=== PATIENT | female | born 1970 | race Caucasian/White ===

== ENCOUNTER 2016-07-09 17:00 | Emergency (ER) | payer MEDICAID ==
[2016-07-09] MEDS ORDERED: LORazepam 2 MG/ML INJ IVP ONE (17:27)
[2016-07-09] MEDS ORDERED: ONDANSETRON 4 MG/2 ML VIAL IVP ONE (17:27)
[2016-07-09] MEDS ORDERED: NS 1,000 ML IV ONE (17:27)
--- NOTE | 2016-07-09 17:30 | EDPHY ---
H & P Time Seen by Provider: 07/09/16 17:08 HPI/ROS: CHIEF COMPLAINT: Vomiting, alcohol withdrawal HISTORY OF PRESENT ILLNESS: 46-year-old female presents to the emergency department with acute alcohol withdrawal. The patient states that she was sober for a year and then has been on a "flannery" for the last 4 days drinking at least 2 pt of vodka daily. She last drank this morning. She checked herself into the addiction recovery [facility] and has been vomiting and does not feel well. The patient states that she is tremulous. She has had alcohol withdrawal seizures in the past. She denies abdominal pain. She denies chest pain or difficulty breathing. She does complain of a mild headache. No neck or back pain. REVIEW OF SYSTEMS: Constitutional: No fever, no chills. Eyes: No double or blurry vision. ENT: No sore throat. Respiratory: No cough, no shortness of breath. Cardiac: No chest pain. Gastrointestinal: Vomiting as above. No abdominal pain or diarrhea. Genitourinary: No dysuria. Musculoskeletal: No neck or back pain. Skin: No rashes. Neurological: headache. Past Medical/Surgical History: Alcoholism, alcohol withdrawal seizure Social History: Single and lives in [place] Smoking Status: Light smoker Physical Exam: General Appearance: Alert. Anxious. Eyes: Pupils equal and round. Extraocular motions are all intact. ENT: Mouth: Mucous membranes moist. Respiratory: No wheezing, rhonchi, or rales, lungs are clear to auscultation. Cardiovascular: Regular rate and rhythm. Tachycardic with heart rate of 120s. Gastrointestinal: Abdomen is soft and nontender, no masses, no rebound or guarding, bowel sounds normal. Neurological: Alert and oriented x 3, cranial nerves II through XII grossly intact Skin: Warm and dry, no rashes. Musculoskeletal: Nontender to palpate along the cervical, thoracic or lumbar spine. Neck is supple. Extremities: Full range of motion and no peripheral edema. Psychiatric: Patient is oriented X 3, there is no agitation. Constitutional: Initial Vital Signs Temperature (C) 37.0 C 07/09/16 17:04 Heart Rate 125 H 07/09/16 17:04 Respiratory Rate 18 07/09/16 17:04 Blood Pressure 127/85 H 07/09/16 17:04 O2 Sat (%) 96 07/09/16 17:04 O2 Delivery Mode Room Air Allergies/Adverse Reactions: No Known Allergies Allergy (Unverified 02/04/14 22:47) Home Medications: Medication Instructions Recorded Levothyroxine 07/09/16 Medical Decision Making ED Course/Re-evaluation: 46-year-old female presents to the emergency department with multiple episodes of vomiting alcohol withdrawal. The patient appears very dehydrated. She is tachycardic. An IV was established and she is receiving IV normal saline. Laboratory studies are pending. The patient has been medically cleared, she will be discharged back to the addiction recovery Center with Librium. The patient received 2 L of IV normal saline, Zofran and Ativan. She was feeling much better. She was tolerating p.o. fluids. Heart rate upon discharge was 102. Will be discharged to the addiction recovery Center. Patient's abdomen is benign. I do not think imaging studies are indicated. Differential Diagnosis: Including but not limited to alcohol withdrawal, delirium, dehydration, gastritis, acute appendicitis, bowel obstruction, urinary tract infection, pyelonephritis - Data Points Laboratory Results: Laboratory Results 07/09/16 17:44 07/09/16 17:44 Sodium 138 mEq/L mEq/L (134-144) Potassium 3.6 mEq/L mEq/L (3.5-5.2) Chloride 94 mEq/L L mEq/L (97-110) Carbon Dioxide 23 mEq/l mEq/l (22-31) Anion Gap 21 mEq/L H mEq/L (8-16) BUN 10 mg/dL mg/dL (7-23) Creatinine 0.8 mg/dL mg/dL (0.6-1.0) Estimated GFR > 60 Glucose 131 mg/dL H mg/dL (70-100) Calcium 9.7 mg/dL mg/dL (8.5-10.4) Medications Given: Discontinued Medications Chlordiazepoxide (Librium 25 Mg Prepack#6) 1 btl TAKEHOME EDNOW ONE Stop: 07/09/16 19:10 Last Admin: 07/09/16 19:15 Dose: 1 btl Sodium Chloride (Ns) 1,000 mls @ 0 mls/hr IV ONCE ONE PRN Reason: Wide Open Stop: 07/09/16 17:28 Last Admin: 07/09/16 17:52 Dose: 1,000 mls Lorazepam (Ativan Injection) 1 mg IVP EDNOW ONE Stop: 07/09/16 17:28 Last Admin: 07/09/16 17:51 Dose: 1 mg Ondansetron HCl (Zofran) 4 mg IVP EDNOW ONE Stop: 07/09/16 17:28 Last Admin: 07/09/16 17:52 Dose: 4 mg Departure - Departure Disposition: Home, Routine, Self-Care Clinical Impression: Alcohol withdrawal Qualifiers: Complication of substance-induced condition: uncomplicated Qualified Code(s): F10.230 - Alcohol dependence with withdrawal, uncomplicated Vomiting Qualifiers: Vomiting type: unspecified Vomiting Intractability: non-intractable Nausea presence: with nausea Qualified Code(s): R11.2 - Nausea with vomiting, unspecified Condition: Good Instructions: Chlordiazepoxide/Clidinium (By mouth), Acute Nausea and Vomiting (ED), Alcohol Withdrawal (ED) Additional Instructions: Clear liquids and slowly advance diet as tolerated. Librium will be dispensed by [facility] staff for symptoms of withdrawal. Referrals: [facility] [Outside] - As per Instructions
[2016-07-09 18:06] LABS: ANION GAP 21 mEq/L (8-16); CALCIUM 9.7 mg/dL (8.5-10.4); CARBON DIOXIDE 23 mEq/l (22-31); CHLORIDE 94 mEq/L (97-110); CREATININE 0.8 mg/dL (0.6-1.0); GLOMERULAR FILTRATION RATE > 60; GLUCOSE 131 mg/dL (70-100); POTASSIUM 3.6 mEq/L (3.5-5.2); SODIUM 138 mEq/L (134-144)
[2016-07-09 18:29] VITALS: TEMP 98.2
[2016-07-09] MEDS ORDERED: CHLORDIAZEPOXIDE 25MG PREPK#6 BTL TAKEHOME ONE (19:09)
[2016-07-09 19:23] VITALS: BP 123/81; PULSE 99; RESP 16; O2SAT 96
== END 2016-07-09 19:21 | disposition home or self-care (01) ==
DX: F10.230 Alcohol dependence with withdrawal, uncomplicated (principal); F17.200 Nicotine dependence, unspecified, uncomplicated
CPT/HCPCS: 96374; J2060; J2405

== ENCOUNTER 2016-08-04 17:14 | Emergency (ER) | payer MEDICAID ==
[2016-08-04 18:02] VITALS: RESP 16; O2SAT 96
--- NOTE | 2016-08-04 18:47 | EDPHY ---
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 She is not know exactly how she landed. She did have a sudden onset of pain in the right elbow. She continued to get on the bus and went home and now returns here is the pain is persisted. No numbness or tingling. No weakness. No wrist drop. No pain in the ipsilateral brachium, shoulder, forearm, wrist or hand. No head or neck injury. No loss of conscious. No chest or back pain. No abdominal pain. No injuries to the legs of the left arm. She is right-hand dominant. No other associated complaints or modifying factors. PRIOR ORTHO INJURIES: Left lower extremity surgery remotely ESTABLISHED ORTHOPEDIST: None REVIEW OF SYSTEMS: Ten systems reviewed and are negative unless otherwise noted in the HPI EXAMINATION General Appearance: Alert, no distress, tearful but consolable Cardiovascular: Pulses normal throughout. Symmetric radial pulses 2+. Brisk cap refill Neurological: A&O, sensory symmetric, strength symmetric. No wrist drop. Excellent strength in the interossei symmetrically. Skin: Warm and dry, no rash. No lacerations abrasions or contusions. Extremities: Tenderness to palpation of the right elbow. Difficulty ranging the elbow due to pain. There is no point tenderness of the radial head. Range of motion of the right shoulder and right wrist are fully intact and symmetric. Neurovascular intact distal to the area of pain Psychiatric: Mood and affect normal DIFFERENTIAL DIAGNOSES: Including but not limited to fracture, dislocation, fracture dislocation, sprain , strain, contusion, hematoma MDM: 6:45 p.m. Mechanical fall with right elbow injury. There is mild swelling. No deformity. She is neurovascular intact distal to the injury. X-ray is pending at this time. 7:00 p.m. X-ray has been read as a radial head fracture, nondisplaced with effusion. I have re-evaluated her. She will be treated with posterior splint, sling. We discussed removing the sling for range of motion of the shoulder. We discussed return to the emergency department precautions. She is to follow up with Orthopedics for definitive care. She is comfortable this plan and discharged home neurovascular intact, in stable condition ED Precautions: Worsening pain. Erythema, edema, cyanosis, pallor, paresthesia or anesthesia. SUPERVISION: This patient was independently evaluated without direct examination by the attending physician. Case was discussed with attending physician. Source: Patient Exam Limitations: No limitations - Personal History LMP (Females 10-55): 8-14 Days Ago Current Tetanus/Diphtheria Vaccine: Unsure Current Tetanus Diphtheria and Acellular Pertussis (TDAP): Unsure Tetanus Vaccine Date: 2013 - Medical/Surgical History Hx Asthma: No Hx Chronic Respiratory Disease: No Hx Diabetes: No Hx Cardiac Disease: No Hx Renal Disease: No Hx Cirrhosis: No Hx Alcoholism: Yes Hx HIV/AIDS: No Hx Splenectomy or Spleen Trauma: No Other PMH: hypothyroidism, bipolar, alcoholism, - Social History Smoking Status: Light smoker Constitutional: Initial Vital Signs Temperature (C) 98.4 F 08/04/16 18:00 Heart Rate 76 08/04/16 18:00 Respiratory Rate 16 08/04/16 18:00 Blood Pressure 155/95 H 08/04/16 18:00 O2 Sat (%) 96 08/04/16 18:00 O2 Delivery Mode Room Air Allergies/Adverse Reactions: No Known Allergies Allergy (Unverified 02/04/14 22:47) Home Medications: Medication Instructions Recorded Levothyroxine 07/09/16 oxyCODONE HCL/ACETAMINOPHEN 1 each PO Q4-6PRN PRN #14 tablet 08/04/16 [Percocet 5-325 mg Tablet] Departure - Departure Disposition: Home, Routine, Self-Care Clinical Impression: Contusion of elbow, right Qualifiers: Encounter type: initial encounter Qualified Code(s): S50.01XA - Contusion of right elbow, initial encounter Right radial head fracture Qualifiers: Encounter type: initial encounter Fracture type: closed Fracture alignment: nondisplaced Qualified Code(s): S52.124A - Nondisplaced fracture of head of right radius, initial encounter for closed fracture Condition: Good Instructions: Elbow Sprain (ED), Arthralgia (ED), Elbow Fracture (ED) Additional Instructions: 1. Keep splint in place at all times until seen by Orthopedics 2. Ice and elevate the extremity often 3. Removed the sling 2-3 times daily to range the shoulder 4. Return to the ER for worsening pain, numbness, tingling, weakness changes in appearance of the arm or hand Referrals: NONE *PRIMARY CARE P,. [Primary Care Provider] - As per Instructions Kory Hernandez MD [Medical Doctor] - As per Instructions Prescriptions: oxyCODONE HCL/ACETAMINOPHEN [Percocet 5-325 mg Tablet] 1 each PO Q4-6PRN PRN # 14 tablet PRN Reason: Pain, Breakthrough
[2016-08-04] MEDS ORDERED: OXYCODONE/APAP 5/325MG PREPACK#4 BTL TAKEHOME ONE (18:56)
[2016-08-04] MEDS ORDERED: OXYCODONE/APAP 5/325 TAB PO ONE (18:56)
[2016-08-04 19:25] VITALS: BP 153/92; PULSE 77; TEMP 98.2
== END 2016-08-04 19:23 | disposition home or self-care (01) ==
DX: S52.124A Nondisplaced fracture of head of right radius, initial encounter for closed fracture (principal); S50.01XA Contusion of right elbow, initial encounter; F17.200 Nicotine dependence, unspecified, uncomplicated; W01.0XXA Fall on same level from slipping, tripping and stumbling without subsequent striking against object, initial encounter; Y99.8 Other external cause status; Y93.01 Activity, walking, marching and hiking

== ENCOUNTER 2017-04-26 13:11 | Emergency (ER) | payer MEDICAID ==
--- NOTE | 2017-04-26 13:53 | EDPHY ---
H & P Time Seen by Provider: 04/26/17 13:33 HPI/ROS: CHIEF COMPLAINT: Flu-like symptoms HISTORY OF PRESENT ILLNESS: This patient is a 47 y/o female arriving via EMS for evaluation of flu-like symptoms. Two weeks ago, she developed congestion, headache, and vomiting. Several coworkers had similar symptoms. Recently, she has had a productive cough , and feels "out of it". She is concerned she may be dehydrated since she has a very sore throat and feels she has not been able to eat or drink much. She does say she has had about half a gallon of water today. She had noted dark-colored urine. She endorses subjective fever. Today, she felt her cough was worsening and felt too weak to walk to the bus stop, so called EMS. She does generally smoke but has not for several days due to her cough. No chest pain, abdominal pain, diarrhea, neck pain, or other associated symptoms. REVIEW OF SYSTEMS: A 10 point review of systems was performed and is negative with the exception of the elements mentioned in the history of present illness. Past Medical/Surgical History: Hypothyroidism Bipolar Alcoholism Social History: Light tobacco use. Lives in an apartment in [place]. Employed. Moderate alcohol use. Smoking Status: Light smoker Physical Exam: General Appearance: Alert, pleasant, nontoxic Eyes: Pupils equal and round, no conjunctival pallor or injection ENT, Mouth: Pharyngeal erythema. Mucous membranes moist Neck: Normal inspection Respiratory: Lungs are clear to auscultation Cardiovascular: Regular tachycardia Gastrointestinal: Abdomen is soft and non-tender Neurological: A&O, nonfocal exam Skin: Warm and dry, no rash Extremities: Nontender, no pedal edema Psychiatric: Mood and affect normal Constitutional: Initial Vital Signs Temperature (C) 36.8 C 04/26/17 13:11 Heart Rate 98 04/26/17 13:11 Respiratory Rate 16 04/26/17 13:11 Blood Pressure 118/92 H 04/26/17 13:11 O2 Sat (%) 93 04/26/17 13:11 O2 Delivery Mode Room Air Allergies/Adverse Reactions: No Known Allergies Allergy (Unverified 02/04/14 22:47) Home Medications: Medication Instructions Recorded Levothyroxine 07/09/16 Albuterol [Proventil Inhaler HFA 2 puffs IH QID PRN #1 mdi 04/26/17 (*)] Azithromycin [Zithromax] 250 mg PO DAILY #6 tab 04/26/17 traZODone 04/26/17 Medical Decision Making - Diagnostics Imaging Results: Imaging Impressions Chest X-Ray 04/26/17 14:00 Impression: No evidence of acute cardiopulmonary abnormality. Imaging: I viewed and interpreted images myself ED Course/Re-evaluation: 47 y/o female presents with one week history of cough, headache, and malaise. Lungs are clear to auscultation, but patient has productive cough and complains of chest congestion. Plan for chest x-ray, labs including CBC and chemistries. Plan to administer DuoNeb and IVF for symptom relief. Reviewed chest x-ray. Negative for pneumonia. Results d/w patient. She is feeling better following DuoNeb administration. Lungs remain clear to auscultation. Administered 8mg PO Decadron for sore throat. Plan to d/c home in good condition with prescription for Zithromax and albuterol inhaler. F/u and return precautions discussed. She is comfortable with this plan. Differential Diagnosis: Differential diagnosis includes but is not limited to pneumonia, otitis media, peritonsillar abscess, retropharyngeal abscess, meningitis. - Data Points Laboratory Results: Laboratory Results 04/26/17 13:12 04/26/17 13:12 04/26/17 04/26/17 13:12 13:12 WBC 8.26 10^3/uL 10^3/uL (3.80-9.50) RBC 5.15 10^6/uL 10^6/uL (4.18-5.33) Hgb 15.6 g/dL g/dL (12.6-16.3) Hct 46.0 % % (38.0-47.0) MCV 89.3 fL fL (81.5-99.8) MCH 30.3 pg pg (27.9-34.1) MCHC 33.9 g/dL g/dL (32.4-36.7) RDW 20.1 % H % (11.5-15.2) Plt Count 155 10^3/uL 10^3/uL (150-400) MPV 10.8 fL fL (8.7-11.7) Neut % (Auto) 75.4 % H % (39.3-74.2) Lymph % (Auto) 16.8 % % (15.0-45.0) [place] % (Auto) 5.9 % % (4.5-13.0) Eos % (Auto) 0.4 % L % (0.6-7.6) Baso % (Auto) 1.0 % % (0.3-1.7) Nucleat RBC Rel Count 0.2 % % (0.0-0.2) Absolute Neuts (auto) 6.23 10^3/uL 10^3/uL (1.70-6.50) Absolute Lymphs (auto) 1.39 10^3/uL 10^3/uL (1.00-3.00) Absolute Monos (auto) 0.49 10^3/uL 10^3/uL (0.30-0.80) Absolute Eos (auto) 0.03 10^3/uL 10^3/uL (0.03-0.40) Absolute Basos (auto) 0.08 10^3/uL 10^3/uL (0.02-0.10) Absolute Nucleated RBC 0.02 10^3/uL H 10^3/uL (0-0.01) Immature Gran % 0.5 % % (0.0-1.1) Immature Gran # 0.04 10^3/uL 10^3/uL (0.00-0.10) Sodium 145 mEq/L mEq/L (135-145) Potassium 3.9 mEq/L mEq/L (3.5-5.2) Chloride 97 mEq/L mEq/L (97-110) Carbon Dioxide 21 mEq/l L mEq/l (22-31) Anion Gap 27 mEq/L H mEq/L (8-16) BUN 10 mg/dL mg/dL (7-23) Creatinine 1.0 mg/dL mg/dL (0.6-1.0) Estimated GFR 59 Glucose 85 mg/dL mg/dL (70-100) Calcium 9.3 mg/dL mg/dL (8.5-10.4) Medications Given: Discontinued Medications Albuterol/Ipratropium (Duoneb) 3 ml IH EDNOW ONE Stop: 04/26/17 14:00 Last Admin: 04/26/17 14:28 Dose: 3 ml Dexamethasone (Decadron) 8 mg PO EDNOW ONE Stop: 04/26/17 14:52 Last Admin: 04/26/17 15:26 Dose: 8 mg Sodium Chloride (Ns) 1,000 mls @ 0 mls/hr IV ONCE ONE; Wide Open PRN Reason: Protocol Stop: 04/26/17 14:00 Last Admin: 04/26/17 14:28 Dose: 1,000 mls Departure - Departure Disposition: Home, Routine, Self-Care Clinical Impression: Acute bronchitis Qualifiers: Bronchitis organism: other organism Qualified Code(s): J20.8 - Acute bronchitis due to other specified organisms Condition: Good Instructions: Albuterol (By breathing), Azithromycin (By mouth), Acute Bronchitis (ED) Additional Instructions: 1. Follow up with the [facility] for further evaluation. 2. Take Zithromax as prescribed. 3. Stay well hydrated, drinking plenty of fluids. 4. Return to the Emergency Department for high fever, difficulty tolerating or swallowing liquids, neck pain or stiffness, shortness of breath or other concerns. 5. Use your Albuterol inhaler as prescribed as needed for difficulty breathing. Referrals: [facility],. [Clinic] - As per Instructions Prescriptions: Albuterol [Proventil Inhaler HFA (*)] 2 puffs IH QID PRN #1 mdi PRN Reason: Short Of Breath/Dyspnea Azithromycin [Zithromax] 250 mg PO DAILY #6 tab Report Scribed for: Lucila Cortes Report Scribed by: Araceli Larson Date of Report: 04/26/17 Time of Report: 13:57 Physician Review and Approval Statement: 04/26/17 14:54 Portions of this note were transcribed by a medical administrator. I personally performed a history, physical exam, medical decision making, and confirmed accuracy of information the transcribed note.
[2017-04-26] MEDS ORDERED: IPRATROPIUM/ALBUTEROL 3 ML DEYVIAL IH ONE (13:59)
[2017-04-26] MEDS ORDERED: NS 1,000 ML IV ONE (13:59)
[2017-04-26 14:10] LABS: PLATELET COUNT 155 10^3/uL (150-400)
[2017-04-26 14:15] VITALS: TEMP 98.2
[2017-04-26 14:30] VITALS: PULSE 100
[2017-04-26] MEDS ORDERED: DEXAMETHASONE 4 MG TAB PO ONE (14:51)
[2017-04-26 15:33] VITALS: BP 118/90; RESP 16; O2SAT 94
== END 2017-04-26 15:31 | disposition home or self-care (01) ==
LOC: EDUNIT# → EDBD
DX: J20.8 Acute bronchitis due to other specified organisms (principal); E86.9 Volume depletion, unspecified; F17.200 Nicotine dependence, unspecified, uncomplicated

== ENCOUNTER 2017-06-16 20:55 | Emergency (ER) | payer MEDICAID ==
[2017-06-16 21:00] VITALS: BP 108/81
[2017-06-16] MEDS ORDERED: ONDANSETRON DISINTEGRATING 4 MG TAB ONE (21:12)
[2017-06-16] MEDS ORDERED: ONDANSETRON DISINTEGRATING 4 MG TAB PO ONE (21:14)
[2017-06-16] MEDS ORDERED: CHLORDIAZEPOXIDE 25MG PREPK#6 BTL TAKEHOME ONE (21:21)
--- NOTE | 2017-06-16 21:23 | EDPHY ---
H & P Time Seen by Provider: 06/16/17 21:21 HPI/ROS: CHIEF COMPLAINT: Alcohol withdrawal, needs Librium HISTORY OF PRESENT ILLNESS: 47-year-old female with alcoholism presents with request for Librium. [facility]. She started vomiting this afternoon, but now feels better after Zofran ODT. She is requesting Librium and then to go back to the [facility]. REVIEW OF SYSTEMS: Constitutional: No fever, no chills Eyes: No visual changes ENT: No sore throat Respiratory: No cough, no shortness of breath Cardiac: No chest pain Gastrointestinal: no abdominal pain Genitourinary: No hematuria, no dysuria Musculoskeletal: No leg pain or swelling Skin: No rash Neurological: No headache Psychiatric: No depression Past Medical/Surgical History: Alcoholism Smoking Status: Light smoker Physical Exam: General Appearance: Alert, pleasant, not tremulous Eyes: Pupils equal and round, no conjunctival pallor or injection ENT, Mouth: Mucous membranes moist Neck: Normal inspection Respiratory: Lungs are clear to auscultation Cardiovascular: Regular tachycardia, heart rate 105 Gastrointestinal: Abdomen is soft and nontender Neurological: A&O, nonfocal, normal gait Skin: Warm and dry, no rash Extremities: Nontender, no pedal edema Psychiatric: Mood and affect normal Constitutional: Initial Vital Signs Temperature (C) 37 C 06/16/17 20:58 Heart Rate 126 H 06/16/17 20:58 Respiratory Rate 18 06/16/17 20:58 Blood Pressure 108/81 H 06/16/17 20:58 O2 Sat (%) 93 06/16/17 20:58 O2 Delivery Mode Room Air Allergies/Adverse Reactions: No Known Allergies Allergy (Verified 06/16/17 21:00) Home Medications: Medication Instructions Recorded Levothyroxine 07/09/16 Medical Decision Making ED Course/Re-evaluation: This pt presents in alcohol withdrawal. Initial HR 126, HR 100's on my exam. Feels much better after Zofran. Tolerated Librium po. IVF/meds discussed, prefers oral option. Wants to go back to the [facility]. - Data Points Medications Given: Discontinued Medications Chlordiazepoxide (Librium 25 Mg Prepack#6) 1 btl TAKEHOME EDNOW ONE Stop: 06/16/17 21:22 Last Admin: 06/16/17 21:34 Dose: 1 btl Chlordiazepoxide HCl (Librium) 25 mg PO EDNOW ONE Stop: 06/16/17 21:34 Last Admin: 06/16/17 21:34 Dose: 25 mg Ondansetron HCl (Zofran Odt) 4 mg PO EDNOW ONE Stop: 06/16/17 21:15 Last Admin: 06/16/17 21:14 Dose: 4 mg Ondansetron HCl (Zofran Odt 4 Mg Prepack#2) 1 btl TAKEHOME EDNOW ONE Stop: 06/16/17 21:28 Last Admin: 06/16/17 21:34 Dose: 1 btl Departure - Departure Disposition: Home, Routine, Self-Care Clinical Impression: Alcohol withdrawal Qualifiers: Complication of substance-induced condition: uncomplicated Qualified Code(s): F10.230 - Alcohol dependence with withdrawal, uncomplicated Condition: Good Instructions: Chlordiazepoxide/Clidinium (By mouth), Ondansetron (By mouth), Alcohol Withdrawal (ED) Additional Instructions: Take Librium 1-2 tablet every 6 hr as needed for alcohol withdrawal. Zofran 1 tablet under the tongue every 6 hr as needed for nausea. Referrals: [facility] [Outside] - As per Instructions
[2017-06-16] MEDS ORDERED: ONDANSETRON 4MG PREPACK#2 BTL TAKEHOME ONE (21:27)
[2017-06-16] MEDS ORDERED: chlordiazePOXIDE 25 MG CAP ONE (21:31)
[2017-06-16] MEDS ORDERED: chlordiazePOXIDE 25 MG CAP PO ONE (21:33)
== END 2017-06-16 22:06 | disposition home or self-care (01) ==
DX: F10.230 Alcohol dependence with withdrawal, uncomplicated (principal); F17.200 Nicotine dependence, unspecified, uncomplicated

== ENCOUNTER 2017-12-12 17:24 | Emergency (ER) | payer MEDICAID ==
--- NOTE | 2017-12-12 17:31 | EDPHY ---
H & P Time Seen by Provider: 12/12/17 17:28 HPI/ROS: HPI: This is a 47-year-old female who presents with Chief Complaint: "Not feeling well", generalized malaise Location: Body Quality:"Not feeling well" Duration: 2-3 months Signs and Symptoms: no fever, no nausea, no vomiting, no hematemesis, no blood in stool, no abdominal bloating, no diarrhea, no back pain, no urinary symptoms , no vaginal bleeding/discharge, no indigestion, no chest pain, no shortness of breath Timing: Daily Severity: [id number] Context: Patient has a history of hypothyroidism, takes Synthroid 125 mcg daily , presents via EMS under the influence of alcohol, with complaints of"not feeling well."For the last 2-3 months. She reports that she went to [facility] yesterday and they were unable to obtain her blood and she was told to come back on December 29 for further evaluation. She reports that she feels fatigued, decreased appetite, hair loss for the last 2-3 months. She is requesting basic laboratory workup. She is extremely concerned as her Synthroid has been lowered from 150 mcg to 125 mcg approximately 3 months ago. Modifying Factors: None Comment: ROS: A comprehensive 10 system review of systems is otherwise negative aside from elements mentioned in the history of present illness. MEDICAL/SURGICAL/SOCIAL HISTORY: Medical history: hypothyroidism, bipolar, alcoholism/etoh w/d Surgical history: Denies Social history: light smoker. Family history noncontributory. CONSTITUTIONAL: Histrionic, extremely well-appearing, overweight middle-aged white female, awake and alert, no obvious distress HEENT: Atraumatic and normocephalic, PERRL, EOMI. Nares patent; no rhinorrhea; no nasal mucosal edema. Tympanic membranes clear. Oropharynx clear, no exudate and moist pink mucosa. Airway patent. No lymphadenopathy. No meningismus. Cardiovascular: Normal S1/S2, regular rate, regular rhythm, without murmur rub or gallop. PULMONARY/CHEST: Symmetrical and nontender. Clear to auscultation bilaterally. Good air movement. No accessory muscle usage. ABDOMEN: Soft, nondistended, nontender, no rebound, no guarding, no peritoneal signs, no masses or organomegaly. No CVAT. EXTREMITIES: 2/2 pulses, strength 5/5, no deformities, no clubbing, no cyanosis or edema. NEUROLOGICAL: no focal neuro deficits. GCS 15. SKIN: Warm and dry, no erythema. no rash. Good capillary refill. Source: Patient, Old records Exam Limitations: No limitations - Personal History Tetanus Vaccine Date: 2013 - Medical/Surgical History Hx Asthma: No Hx Chronic Respiratory Disease: No Hx Diabetes: No Hx Cardiac Disease: No Hx Renal Disease: No Hx Cirrhosis: No Hx Alcoholism: Yes Hx HIV/AIDS: No Hx Splenectomy or Spleen Trauma: No Other PMH: hypothyroidism, bipolar, alcoholism/etoh w/d - Social History Smoking Status: Light smoker Constitutional: Initial Vital Signs Temperature (C) 36.7 C 12/12/17 17:29 Heart Rate 124 H 12/12/17 17:29 Respiratory Rate 16 12/12/17 17:29 Blood Pressure 137/102 H 12/12/17 17:29 O2 Sat (%) 93 12/12/17 17:29 O2 Delivery Mode Room Air Allergies/Adverse Reactions: No Known Allergies Allergy (Verified 06/16/17 21:00) Home Medications: Medication Instructions Recorded Levothyroxine 07/09/16 traZODone 12/12/17 Medical Decision Making ED Course/Re-evaluation: Vital signs reviewed upon arrival in show tachycardia with a heart rate 120. Patient is clearly intoxicated. Laboratory studies and 1 L normal saline ordered. Patient has a follow-up appointment already at the [facility] on December. Case management consult. I spoke with patient and confirm that she follows with Dr. Whiteside as well as the [facility]. Sofi will call patient tomorrow to ensure she has a follow-up appointment and patient was given a bus pass home today. 1814: ETOH 214, TSH is 0.029, free T4 is 2.45. Advised patient that Synthroid needs to be lowered to 112 mcg from 125 mcg. She is extremely reluctant to do this and wishes to follow up with her primary care provider to discuss which I feel is reasonable. This patient was seen under the supervision of my secondary supervising physician. I evaluated care for this patient independently. Discussed this patient with Dr. Oliver. Differential Diagnosis: Differential diagnosis includes but is not limited to hypothyroidism, anemia, electrolyte imbalance, dehydration, depression. - Data Points Laboratory Results: Laboratory Results 12/12/17 17:35 12/12/17 17:35 12/12/17 12/12/17 17:35 17:35 WBC 10.52 10^3/uL H 10^3/uL (3.80-9.50) RBC 4.49 10^6/uL 10^6/uL (4.18-5.33) Hgb 15.3 g/dL g/dL (12.6-16.3) Hct 45.1 % % (38.0-47.0) MCV 100.4 fL H fL (81.5-99.8) MCH 34.1 pg pg (27.9-34.1) MCHC 33.9 g/dL g/dL (32.4-36.7) RDW 14.5 % % (11.5-15.2) Plt Count 302 10^3/uL 10^3/uL (150-400) MPV 9.8 fL fL (8.7-11.7) Neut % (Auto) 59.3 % % (39.3-74.2) Lymph % (Auto) 29.6 % % (15.0-45.0) [place] % (Auto) 9.0 % % (4.5-13.0) Eos % (Auto) 0.7 % % (0.6-7.6) Baso % (Auto) 1.0 % % (0.3-1.7) Nucleat RBC Rel Count 0.0 % % (0.0-0.2) Absolute Neuts (auto) 6.25 10^3/uL 10^3/uL (1.70-6.50) Absolute Lymphs (auto) 3.11 10^3/uL H 10^3/uL (1.00-3.00) Absolute Monos (auto) 0.95 10^3/uL H 10^3/uL (0.30-0.80) Absolute Eos (auto) 0.07 10^3/uL 10^3/uL (0.03-0.40) Absolute Basos (auto) 0.10 10^3/uL 10^3/uL (0.02-0.10) Absolute Nucleated RBC 0.00 10^3/uL 10^3/uL (0-0.01) Immature Gran % 0.4 % % (0.0-1.1) Immature Gran # 0.04 10^3/uL 10^3/uL (0.00-0.10) Sodium 138 mEq/L mEq/L (135-145) Potassium 3.8 mEq/L mEq/L (3.3-5.0) Chloride 100 mEq/L mEq/L (97-110) Carbon Dioxide 21 mEq/l L mEq/l (22-31) Anion Gap 17 mEq/L H mEq/L (8-16) BUN 8 mg/dL mg/dL (7-23) Creatinine 0.8 mg/dL mg/dL (0.6-1.0) Estimated GFR > 60 Glucose 121 mg/dL H mg/dL (70-100) Calcium 10.6 mg/dL H mg/dL (8.5-10.4) Total Bilirubin 0.4 mg/dL mg/dL (0.1-1.4) AST 44 IU/L IU/L (14-46) ALT 28 IU/L IU/L (9-52) Alkaline Phosphatase 96 IU/L IU/L (38-126) Total Protein 7.7 g/dL g/dL (6.3-8.2) Albumin 4.6 g/dL g/dL (3.5-5.0) TSH 0.029 uIU/mL L uIU/mL (0.465-4.680) Free T4 2.45 ng/dL H ng/dL (0.59-2.19) Ethyl Alcohol 258 mg/dL H mg/dL (0-10) Departure - Departure Disposition: Home, Routine, Self-Care Clinical Impression: Hypothyroidism Qualifiers: Hypothyroidism type: unspecified Qualified Code(s): E03.9 - Hypothyroidism, unspecified Fatigue Qualifiers: Fatigue type: chronic, unspecified Qualified Code(s): R53.82 - Chronic fatigue , unspecified Alcohol intoxication Qualifiers: Complication of substance-induced condition: uncomplicated Qualified Code(s): F10.920 - Alcohol use, unspecified with intoxication, uncomplicated Condition: Good Instructions: Abuse of Alcohol (ED), Weakness (ED), Fatigue (ED) Additional Instructions: It is recommended that your levothyroxine be decreased. Please follow-up with your primary care provider to discuss. Return at once for any worsening symptoms or concerns. Referrals: [facility],. [Clinic] - 12/29/17
[2017-12-12 17:48] LABS: PLATELET COUNT 302 10^3/uL (150-400)
[2017-12-12 18:29] VITALS: BP 129/95
--- NOTE | 2017-12-13 15:28 | ASMTCMCOM ---
CM Note CM Note Notes: This CM met with patient shortly after her arrival to the ER yesterday to offer emotional support and clarify follow up with PCP. Patient is active at [facility] and usually sees Shi Nash. Patient would like CM to provide lab results to Dr. Nash and schedule a follow up appointment at the clinic. Given that it was "after hours" at the clinic when I met with patient, I assured her I would follow up with [facility] in the morning and contact patient at that time. Today I have confirmed with [facility] that patient does have a follow up lab draw scheduled this week, as well as a follow up appointment with Dr. Nash on December 25. I have attempted to contact patient with the number she provided on her chart as well as a phone number the Clinic has for her . I was unable to reach patient at either of these phone numbers and confirmed with those that answered, that these numbers do not belong to patient. Date Signed: 12/13/2017 03:27 PM Electronically Signed By:Sofi Burkett RN
== END 2017-12-12 18:30 | disposition home or self-care (01) ==
LOC: EDUNIT#
DX: F10.920 Alcohol use, unspecified with intoxication, uncomplicated (principal); R53.83 Other fatigue; E03.9 Hypothyroidism, unspecified; F17.200 Nicotine dependence, unspecified, uncomplicated
CPT/HCPCS: G0480